=== PATIENT | female | born 1935 | race Caucasian/White ===

== ENCOUNTER 2016-05-02 07:17 | Emergency (ER) | payer OTHER ==
[2016-05-02] MEDS ORDERED: G.I. COCKTAIL PO ONE (07:31)
--- NOTE | 2016-05-02 07:43 | PROVIDER DOCUMENTATION ---
HPI-Chest Pain - General Chief Complaint: Chest Pain Stated Complaint: BURNING SENSATION IN CHEST,BACK Time Seen by Provider: 05/02/16 07:30 Allergies/Adverse Reactions: Patient Allergies Allergy/AdvReac Type Severity Reaction Status Date / Time No Known Allergies Allergy Verified 09/04/14 11:58 Home Medications: Home Medication List Medication Instructions Recorded Confirmed Last Taken Type Amlodipine [Norvasc] 10 mg PO DAILY 08/25/12 05/02/16 05/01/16 20:00 History Aspirin [Aspirin EC] 81 mg PO DAILY 09/04/14 05/02/16 05/01/16 07:00 History Atorvastatin Calcium [Lipitor] 80 mg PO DAILY 09/04/14 05/02/16 05/01/16 20:00 History Lisinopril/Hydrochlorothiazide 1 each PO DAILY 09/04/14 05/02/16 05/01/16 07:00 History [Lisinopril-Hctz 20-25 mg Tab] Diclofenac Sodium [Diclofenac 100 mg PO DAILY 05/02/16 05/02/16 2 Days Ago History Sodium ER] Mag Hydrox/Al Hydrox/Simeth 355 ml PO PRN PRN #2 oral.susp 05/02/16 Unknown Rx [Mylanta Maximum Strength Liq] Omeprazole [Prilosec] 20 mg PO HS #28 capsule 05/02/16 Unknown Rx - History of Present Illness-CP Nature of Presenting Problem: Pt awoke with an epigastric burning pain that went up into the chest at 0200 and finally presented to the ER 5 hours later. She had recently been put on voltaran for her arthritis that had previously been ptreated with EMLA cream Location: reports: central, epigastric Chest Pain Radiation: reports: back Quality of Pain: reports: burning Severity in ED: mild Onset/Duration: abrupt, 4-6 hours ago Timing: still present Context/Activities at Onset: reports: sleep Modifying Factors: improves with: nothing Associated Symptoms: reports: abdominal pain, back pain Review of Systems - Adult - REVIEW OF SYSTEMS - ADULT Constitutional: denies: chills, fever Eyes: denies: discharge, blurred vision Ears, Nose, Mouth & Throat: denies: ear discharge, nose pain, throat swelling Cardiovascular: reports: chest pain. denies: irregular heart rate, syncope Respiratory: denies: chronic cough, shortness of breath Gastrointestinal: denies: constipation, diarrhea, nausea, vomiting Genitourinary: denies: dysuria, hesitency, urgency Musculoskeletal: denies: bone pain, frequent leg cramps, neck pain Integumentary: denies: hives, nail changes, skin thickening Neurological: denies: ataxia, loss of balance, paresthesia Psychiatric: denies: anxiety, anti-depressant use, panic attacks Endocrine: denies: goiter, cold intolerance, heat intolerance Hematologic/Lymphatic: denies: low blood count, lymphedema Allergic/Immunologic: denies: eczema, frequent infections, hay fever, hives Past History - Adult - PAST MEDICAL HISTORY-ADULT Review of Records: reports: Nursing Assessment Review, Medications Reviewed Major Childhood Illnesses: reports: denies history Cardiovascular: reports: HTN, hyperlipidemia Respiratory: reports: denies history Gastrointestinal: reports: denies history Genitourinary: reports: denies history Musculoskeletal: reports: denies history Neurological: reports: denies history Psychiatric: reports: denies history Endocrine/Immune: reports: denies history Physical Exam-General - PHYSICAL EXAM-ADULT Initial Vital Signs Reviewed: Yes - CONSTITUTIONAL General Appearance: appears well, alert, mild distress - EYES Eyes: PERRL/EOMI, pink conjunctivae - HEAD, EARS, NOSE, MOUTH & THROAT HENMT: normocephalic/atraumatic, moist mucous membranes, normal ENT inspection - NECK Neck: non-tender, full range of motion, supple - RESPIRATORY Respiratory: chest non-tender, lungs clear, normal breath sounds, no respiratory distress, no accessory muscle use - CARDIOVASCULAR Cardiovascular: normal peripheral pulses, regular rate, rhythm, no edema, no gallop, no JVD, no murmur - GASTROINTESTINAL (ABDOMEN) Abdominal Exam: normal bowel sounds, non tender, soft, no organomegaly - LYMPHATIC Lymphatic: no adenopathy - MUSCULOSKELETAL Back Exam: normal inspection, no CVA tenderness, no vertebral tenderness Extremity: normal range of motion, non-tender, normal inspection, no pedal edema - SKIN Integumentary: normal color, normal turgor, warm/dry - 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44 [place] # (Auto) 0.45 Eos # (Auto) 0.18 Baso # (Auto) 0.02 Sodium 143 Potassium 3.3 L Chloride 100 Carbon Dioxide 26 Anion Gap 17 BUN 18 Creatinine 1.0 H Estimated GFR/1.73 m2 53 BUN/Creatinine Ratio 18 Glucose 113 H Calculated Osmolality 288 Calcium 9.7 Magnesium 1.8 Total Bilirubin 0.59 AST 18 ALT 15 Alkaline Phosphatase 94 Creatine Kinase 90 Troponin T Mer-N-Esdxxxgbgwa Pept 37 Total Protein 7.4 Albumin 4.6 Globulin 2.8 Albumin/Globulin Ratio 1.6 05/02/16 07:47 WBC RBC Hgb Hct MCV MCH MCHC RDW Std Deviation Plt Count MPV Immature Gran % (Auto) Neut % (Auto) Lymph % (Auto) [place] % (Auto) Eos % (Auto) Baso % (Auto) Immature Gran # (Auto) Neut # (Auto) Lymph # (Auto) [place] # (Auto) Eos # (Auto) Baso # (Auto) Sodium Potassium Chloride Carbon Dioxide Anion Gap BUN Creatinine Estimated GFR/1.73 m2 BUN/Creatinine Ratio Glucose Calculated Osmolality Calcium Magnesium Total Bilirubin AST ALT Alkaline Phosphatase Creatine Kinase Troponin T < 0.010 Yxl-Y-Usqbghoncyr Pept Total Protein Albumin Globulin Albumin/Globulin Ratio Orders Category Date Time Status Cardiac Monitoring DIRECTED Care 05/02/16 07:37 Active Saline Loc NOW Care 05/02/16 07:37 Active CHEST-2 VIEWS [RAD] Stat Exams 05/02/16 07:37 Taken CBC WITH ELECTRONIC DIFF [HEME] Stat Lab 05/02/16 07:47 Completed CK PROFILE [SP CHEM] Stat Lab 05/02/16 07:47 Completed COMPREHENSIVE METABOLIC PANEL [CHEM] Stat Lab 05/02/16 07:47 Completed MAGNESIUM [CHEM] Stat Lab 05/02/16 07:47 Completed PRO B-NATRIURETIC PEPTIDE Stat Lab 05/02/16 07:47 Completed TROPONIN T Stat Lab 05/02/16 07:47 Completed Lido/Amaya Alk/Al&mg Hydrox [G.i. Cocktail] Med 05/02/16 07:31 Discontinued 30 ml PO NOW ONE Potassium Chloride E.r. [Klor-Con] Med 05/02/16 09:27 Discontinued 40 meq PO NOW ONE EKG [EKG] Stat Ther 05/02/16 07:24 Ordered EKG [EKG] Stat Ther 05/02/16 07:37 Ordered Vital Signs Temp Pulse Resp BP Pulse Ox 05/02/16 08:31 67 19 105/56 96 05/02/16 07:20 97.8 F 88 18 154/88 98 No Known Allergies Allergy (Verified 09/04/14 11:58) Amlodipine [Norvasc] 10 mg PO DAILY 08/25/12 Aspirin [Aspirin EC] 81 mg PO DAILY 09/04/14 Atorvastatin Calcium [Lipitor] 80 mg PO DAILY 09/04/14 Lisinopril/Hydrochlorothiazide [Lisinopril-Hctz 20-25 mg Tab] 1 each PO DAILY Diclofenac Sodium [Diclofenac Sodium ER] 100 mg PO DAILY 05/02/16 Laboratory 05/02/16 05/02/16 05/02/16 07:47 07:47 07:47 WBC RBC Hgb Hct MCV MCH MCHC RDW Std Deviation Plt Count MPV Immature Gran % (Auto) Neut % (Auto) Lymph % (Auto) [place] % (Auto) Eos % (Auto) Baso % (Auto) Immature Gran # (Auto) Neut # (Auto) Lymph # (Auto) [place] # (Auto) Eos # (Auto) Baso # (Auto) Sodium 143 Potassium 3.3 L Chloride 100 Carbon Dioxide 26 Anion Gap 17 BUN 18 Creatinine 1.0 H Estimated GFR/1.73 m2 53 BUN/Creatinine Ratio 18 Glucose 113 H Calculated Osmolality 288 Calcium 9.7 Magnesium 1.8 Total Bilirubin 0.59 AST 18 ALT 15 Alkaline Phosphatase 94 Creatine Kinase 90 Troponin T < 0.010 Znj-J-Zyhijahifck Pept 37 Total Protein 7.4 Albumin 4.6 Globulin 2.8 Albumin/Globulin Ratio 1.6 05/02/16 07:47 WBC 9.18 RBC 4.95 Hgb 14.7 Hct 43.2 MCV 87.3 MCH 29.7 MCHC 34.0 RDW Std Deviation 14.1 Plt Count 275 MPV 9.1 Immature Gran % (Auto) 0.2 Neut % (Auto) 66.1 Lymph % (Auto) 26.6 [place] % (Auto) 4.9 Eos % (Auto) 2.0 Baso % (Auto) 0.2 Immature Gran # (Auto) 0.02 Neut # (Auto) 6.07 Lymph # (Auto) 2.44 [place] # (Auto) 0.45 Eos # (Auto) 0.18 Baso # (Auto) 0.02 Sodium Potassium Chloride Carbon Dioxide Anion Gap BUN Creatinine Estimated GFR/1.73 m2 BUN/Creatinine Ratio Glucose Calculated Osmolality Calcium Magnesium Total Bilirubin AST ALT Alkaline Phosphatase Creatine Kinase Troponin T Tep-G-Gvnrtwlhehs Pept Total Protein Albumin Globulin Albumin/Globulin Ratio - REASSESSMENT Reassessment #1 Time Reassessed: 08:15 Status: improving (GI cocktail gave her relief, we discussed GERD precautions) Reassessment #2 Time Reassessed: 09:30 Status: improving (discussed stopping arthritis medication and doing GERD regimen) Departure - Departure Time of Disposition Order: 09:33 DIAGNOSIS: GERD (gastroesophageal reflux disease) Qualifiers: Esophagitis presence: esophagitis presence not specified Qualified Code(s): K21.9 - Gastro-esophageal reflux disease without esophagitis Disposition: HOME 01 Certified Medical Emergency: Emergent Condition: Stable Additional Instructions: stop arthritis medication for now and see your doctor to f/u on GERD ED Follow Up Instructions: You have been treated by a care provider in the Emergency Department. These instructions are being provided to you so you can have an understanding of how to care for yourself upon discharge. Upon discharge from the Emergency Department, you are responsible for making arrangements for follow-up care by a physician of your choice. Take all prescribed medications as directed. Return to the Emergency Department immediately for any new or worsening symptoms. You may call the Physician Referral phone number at [phone] to obtain a list of Physicians who are taking new patients. Prescriptions: Mag Hydrox/Al Hydrox/Simeth [Mylanta Maximum Strength Liq] 355 ml PO PRN PRN #2 oral.susp PRN Reason: GERD Omeprazole [Prilosec] 20 mg PO HS #28 capsule
[2016-05-02 08:06] LABS: MANUAL DIFF NEEDED? NO
[2016-05-02 08:11] LABS: BASO% 0.2 % (0.0-0.8); EOS# 0.18 X1000 (0.0-0.7); HEMATOCRIT 43.2 % (37.0-47.0); HEMOGLOBIN 14.7 g/dL (12.0-16.0); IMM GRAN# 0.02 X1000 (0.0-0.04); IMM GRAN% 0.2 % (0.0-0.5); LYMPH# 2.44 X1000 (1.2-3.4); LYMPH% 26.6 % (20.5-51.1); MCH 29.7 PG (27-31); MCV 87.3 FL (81-99); MONO# 0.45 X1000 (0.11-0.59); MONO% 4.9 % (1.7-9.3); MPV 9.1 FL (7.4-10.4); NEUT% 66.1 % (42.2-75.2); PLT 275 X1000 (130-400); RBC 4.95 XMIL (4.2-5.4)
[2016-05-02 08:24] LABS: ALBUMIN 4.6 g/dL (3.5-5.0); CALCIUM 9.7 mg/dL (8.8-10.2); MAGNESIUM 1.8 mg/dL (1.5-2.7); POTASSIUM 3.3 mmol/L (3.5-5.1); TOTAL BILIRUBIN 0.59 mg/dL (0.20-1.00); TOTAL PROTEIN 7.4 g/dL (6.3-8.3)
[2016-05-02] MEDS ORDERED: KLOR-CON PO ONE (09:27)
[2016-05-02 09:54] VITALS: BP 130/75
--- NOTE | 2016-05-02 10:57 | ED EKG INTERP ---
EKG Interpretation - EKG Time of EKG reading by physician:: 07:24 EKG Read and Signed by:: Mekhi Banegas EKG Interpretation (*Must complete 3 of following elements*): Abnormal Rate: 78 Rhythm: Sinus rhythm with premature atrial complexes Attestation - Scribe Verification/Attestation Scribe:: Rocio Rubi Acting as Scribe for:: Mekhi Banegas Scribe documention review:: This chart was documented by a scribe and accurately reflects the service the provider performed and the decisions made by the provider.
--- NOTE | 2016-05-02 13:52 | Diag Imaging Result Document ---
PROCEDURE NAME: CHEST-2 VIEWS - 05/02/2016 PA AND LATERAL RADIOGRAPH OF THE CHEST: COMPARISON: 09/04/2014. FINDINGS: The lungs appear to be somewhat hyperinflated suggesting COPD. The lungs are clear otherwise. There is no definite pleural fluid collection. Cardiac silhouette and central vasculature are grossly unremarkable. IMPRESSION: Suggestion of COPD but no definite acute pathology.
--- NOTE | 2016-05-03 05:27 | EKG Report ---
Test Performed on : 05/02/2016 07:24:51 AM Test Reason : CP radiating into back and neck Blood Pressure : / mmHG Vent. Rate : 078 BPM Atrial Rate : 078 BPM P-R Int : 188 ms QRS Dur : 090 ms QT Int : 392 ms P-R-T Axes : 034 -22 023 degrees QTc Int : 446 ms Sinus rhythm. with premature atrial complexes. Nonspecific ST abnormality Abnormal ECG When compared with ECG of 04-SEP-2014 10:49, No significant change was found Unconfirmed Result
== END 2016-05-02 09:50 | disposition home or self-care (01) ==
LOC: ED 07:17
DX: K21.9 Gastro-esophageal reflux disease without esophagitis (principal); R10.13 Epigastric pain; R07.9 Chest pain, unspecified; M54.9 Dorsalgia, unspecified; I10 Essential (primary) hypertension; E78.5 Hyperlipidemia, unspecified; R94.31 Abnormal electrocardiogram [ECG] [EKG]; Z79.899 Other long term (current) drug therapy; Z79.82 Long term (current) use of aspirin
CPT/HCPCS: 71020; 80053; 82550; 83735; 83880; 84484; 85025; 93005; 99284